=== PATIENT | male | born 1980 ===

== ENCOUNTER 2021-05-23 13:01 | Day surgery (SDC) | payer OTHER ==
[~2021-05-23] VITALS: Ht 170.2 cm; Wt 92.1 kg
[2021-05-23] VITALS (8 sets, daily range): BP systolic 128–144; BP diastolic 69–97
[~2021-05-23 13:01] MED LIST: ACET-3080 PO; ASPI-1265 PO; CALC625T62 PO; CHOL20004 PO; MAGN200T5 PO; OMEP-50 PO; cefazolin/dext.iso 2gm/100ml IV ONE; famotidine 20mg tablet PO ONE; ringers solution, lacted 1,000 ML IV SCH
[2021-05-23] MEDS ORDERED: METF-436 PO (13:21)
[2021-05-23] MEDS ORDERED: ATOR10TA70 PO (13:21)
[2021-05-23] MEDS ORDERED: vancomycin 1,000mg inj ONE (16:07)
[2021-05-23] MEDS ORDERED: BUPIVAcaine 0.5% inj/PF 30 ML ONE (16:07)
[2021-05-23] MEDS ORDERED: proCHLORperazine 10 MG/2 ml inj IV PRN (16:55)
[2021-05-23] MEDS ORDERED: morphine 2 MG/ML inj. syringe IV PRN (16:55)
[2021-05-23] MEDS ORDERED: midazolam 1 mg/ML 2ml injection ONE ×2 (16:55)
[2021-05-23] MEDS ORDERED: ringers solution, lacted 1,000 ML IV SCH (16:55)
[2021-05-23] MEDS ORDERED: morphine 4 MG/ML inj SYRINge IV PRN (16:55)
[2021-05-23] MEDS ORDERED: ondansetron/PF 4mg/2ml inj IV PRN (16:55)
[2021-05-23] MEDS ORDERED: fentaNYL/PF 50MCG/1 ML 2ML syringe ONE ×2 (16:55→17:38)
[2021-05-23] MEDS ORDERED: meperidine/PF 25mg/ml syringe IV PRN ×3 (16:55)
[2021-05-23] MEDS ORDERED: sevoflurane 250ml liquid IH ONE (16:56)
[2021-05-23] MEDS ORDERED: propofol inj 20 ML IV ONE (18:41)
[2021-05-23] MEDS ORDERED: dexamethasone sod phosphate 4mg/ml inj. ONE (18:41)
[2021-05-23] MEDS ORDERED: rocuronium 10mg/ml inj IV ONE (18:41)
[2021-05-23] MEDS ORDERED: acetaminophen 1,000mg/100ml IV 100 ML IV ONE (18:41)
[2021-05-23] MEDS ORDERED: ondansetron/PF 4mg/2ml inj ONE (18:41)
[2021-05-23] MEDS ORDERED: glycopyrrolate 0.2mg/ml inj ONE (18:41)
[2021-05-23] MEDS ORDERED: neostigmine methylsulfate 1 MG/ML 10ml vial ONE (18:41)
[2021-05-23] MEDS ORDERED: LIDOcaine 2% (20mg/ml) 5ml vial ONE (18:41)
--- NOTE | 2021-05-23 19:03 | NUR ---
Received from OR via [facility], accompanied by Anesthesiologist DR LANGFORD and report given by Anesthesiologist. PT VERY DROWSY, NO S/S OF DISCOMFORT/DISTRESS. LEFT SHOULDER W/LISETTE JIM CDI, LEFT ARM IN IMMOBILIZER. Addendum: 05/23/21 at 1932 by Liya Hoffmann RN Amended: Links added.
--- NOTE | 2021-05-23 20:03 | NUR ---
PT UP AND ABLE TO AMBULATE SAFELY, PT DC/D TO [facility] W/CORRECTIONAL OFFICERS W/O INCIDENT. Addendum: 05/23/21 at 2021 by Liya Hoffmann RN Amended: Links added.
== END 2021-05-23 20:03 ==
LOC: PRE-OP 13:01 → PAS 20:03
PROVIDERS: ATTEND Orthopaedic Surgery
DX: S43.122A Dislocation of left acromioclavicular joint, 100%-200% displacement, initial encounter (principal); E78.5 Hyperlipidemia, unspecified; G89.18 Other acute postprocedural pain; Z79.899 Other long term (current) drug therapy; X58.XXXA Exposure to other specified factors, initial encounter; Y93.89 Activity, other specified; Y92.89 Other specified places as the place of occurrence of the external cause; Y99.8 Other external cause status
CPT/HCPCS: 23550; 64415; 76942; 82948; C1713; J0131; J1100; J2001; J2250; J2405; J2704; J2710; J3010; J3370; A4215; A4565; A4618; A7000; J3490; J7120